=== PATIENT | male | born 1970 | race Caucasian/White ===

== ENCOUNTER → 2024-04-28 | Outpatient (CLI) | payer SELFPAY ==
--- NOTE | 2024-04-28 15:15 | XR ---
EXAMINATION TYPE: XR chest 1V DATE RECEIVED ON: 04/28/2024 DATE PERFORMED: 04/28/2024 COMPARISON: NONE HISTORY: Possible swallowed foreign body TECHNIQUE: Frontal and lateral views of the chest are obtained. FINDINGS: The heart size is normal. The pulmonary vasculature is normal. The lungs are clear. There is radiopaque foreign body over the midline in the frontal projection. Radiopaque densities may be visualized on the lateral projection. This is in the mid portions suggesting this is in the dista l esophagus a stent positioning. This is lower than the main bronchus. IMPRESSION: 1. No acute cardiopulmonary process. 2. Radiopaque foreign body in the midline on the frontal projection of the mid chest base on the late ral projection suggesting foreign body within the distal esophagus.
--- NOTE | 2024-04-28 15:20 | XR ---
EXAMINATION TYPE: XR abdomen 1V DATE OF EXAM: 04/28/2024 COMPARISON: Chest x-ray same date INDICATION: Foreign body TECHNIQUE: Single view abdomen right abdomen FINDINGS: There is a normal bowel gas pattern. Small bowel air-fluid level is present in left mid abdomen. No m ass effect is evident. Psoas margins are normal. No organomegaly is present. Foreign bodies over the midline may reside within the distal esophagus on the frontal upright abdomen . There is an irregular hyperdensity overlying the right L2 pedicle. Calcification may be present. There is a 0.5 cm calcification at the inferior pole right kidney. Inferior right renal calcification s likely present. IMPRESSION: 1. Opaque foreign body most likely within the distal esophagus. 2. Sclerotic area at L2 level, calcification should be considered. 3. Inferior pole right renal calcification.
== END | disposition home or self-care (01) ==
LOC: RADXRMAIN 14:28
PROVIDERS: ATTEND Dentist Periodontics
DX: T18.108A Unspecified foreign body in esophagus causing other injury, initial encounter (principal); N28.89 Other specified disorders of kidney and ureter
CPT/HCPCS: 71045; 74018